=== PATIENT | female | born 1945 | race Caucasian/White ===

== ENCOUNTER 2024-12-23 13:06 | Emergency (ER) | payer OTHER, MEDICAID ==
[~2024-12-23] VITALS: Ht 154.9 cm; Wt 49.0 kg
[~2024-12-23 13:06] MED LIST: ATOR40TA70 MT; FLUT9.9S BOTHNSTRLS; GLIP5TAB22 PO; IBUP-2030 PO; LISI10TA26 PO; LOPE-159 PO; MECL-127 PO; OXCA300T51 PO; TIMO5DRO40 EACHEYE
[2024-12-23 13:07] VITALS: O2SAT 100
[2024-12-23 13:46] LABS: BASOPHILS % 0.8 % (0.0-2.0); EOSINOPHILS % 0.8 % (0.0-5.0); HEMATOCRIT. 33.7 % (36.0-48.0); HEMOGLOBIN. 11.2 g/dL (12.0-16.0); LYMPHOCYTES % 13.2 % (20.0-50.0); MEAN PLATELET VOLUME 9.5 fl (7.4-10.4); MONOCYTES % 9.3 % (2.0-8.0); NEUTROPHILS % 75.9 % (40.0-76.0); PLATELET 476 x1000/uL (130-400); RED BLOOD CELL COUNT 3.51 mill/uL (4.2-5.4); RED CELL DISTRIBUTION WIDTH 14.3 % (11.6-14.6)
[2024-12-23] MEDS: SODIUM CHLORIDE 0.9% 500 ML IV ONE (13:55)
[2024-12-23 14:01] LABS: CREATININE 0.6 mg/dL (0.6-1.0)
[2024-12-23 14:02] LABS: INR 1.0; TROPONIN I HIGH SENSITIVITY 4 ng/L (3.0-34); UREA NITROGEN BLOOD 16 mg/dL (9-23)
[2024-12-23 14:03] LABS: ASPARTATE AMINOTRANSFERASE 42 IU/L (<34)
[2024-12-23 14:04] LABS: BILIRUBIN DIRECT 0.2 mg/dL (<=3.0); BILIRUBIN TOTAL 0.5 mg/dL (0.1-1.0); PROTEIN TOTAL 6.9 g/dL (6.0-8.3)
[2024-12-23] MEDS ORDERED: KETOROLAC 15MG/ML VIAL IV ONE (15:30)
[2024-12-23 15:46] LABS: CLARITY URINE CLEAR (CLEAR); COLOR URINE YELLOW (YELLOW); GLUCOSE URINE NEGATIVE (NEGATIVE); KETONES URINE NEGATIVE (NEGATIVE); LEUKOCYTE ESTERASE URINE NEGATIVE (NEGATIVE); NITRITE URINE NEGATIVE (NEGATIVE); OCCULT BLOOD URINE NEGATIVE (NEGATIVE); PH URINE 7.5 (4.5-8.0); PROTEIN URINE NEGATIVE (NEGATIVE); SPECIFIC GRAVITY URINE 1.008 (1.005-1.030); UROBILINOGEN URINE 0.2 E.U./dL (0.2-1.0)
[2024-12-23] MEDS: KETOROLAC 15MG/ML VIAL IV NR (18:12)
[2024-12-23 21:17] VITALS: BP 165/66; PULSE 80; RESP 20; TEMP 36.9; O2SAT 98
== END 2024-12-23 21:40 | disposition short-term general hospital (02) ==
LOC: ER 13:06 → CMPBEDREQ 12-24 16:20
DX: R55 Syncope and collapse (principal); I95.9 Hypotension, unspecified; I10 Essential (primary) hypertension; R06.02 Shortness of breath; J45.909 Unspecified asthma, uncomplicated; Z79.899 Other long term (current) drug therapy; Z86.73 Personal history of transient ischemic attack (TIA), and cerebral infarction without residual deficits
CPT/HCPCS: 99291; 74176; 96374; 80076; 80048; 81003; 83880; 83605; 83690; 83735; 85025; 85610; 85730; 87040; 87086; 87186; 84484; 87077; 36415; 84145; 71045; 93005; J1885; J7040; A4606

== ENCOUNTER 2025-03-23 18:39 | Emergency (ER) | payer OTHER, MEDICAID ==
[~2025-03-23] VITALS: Ht 160 cm; Wt 60.0 kg
[2025-03-23 18:42] VITALS: O2SAT 100
[2025-03-23 19:43] LABS: HEMATOCRIT. 32.1 % (36.0-48.0); HEMOGLOBIN. 10.7 g/dL (12.0-16.0); MEAN PLATELET VOLUME 9.9 fl (7.4-10.4); PLATELET 450 x1000/uL (130-400); RED BLOOD CELL COUNT 3.34 mill/uL (4.2-5.4); RED CELL DISTRIBUTION WIDTH 14.2 % (11.6-14.6)
[2025-03-23 19:57] LABS: CREATININE 0.5 mg/dL (0.6-1.0)
[2025-03-23 19:58] LABS: TROPONIN I HIGH SENSITIVITY 5 ng/L (3.0-34); UREA NITROGEN BLOOD 15 mg/dL (9-23)
[2025-03-23 19:59] LABS: ASPARTATE AMINOTRANSFERASE 50 IU/L (<34)
[2025-03-23 20:00] LABS: BILIRUBIN DIRECT < 0.1 mg/dL (<=3.0); BILIRUBIN TOTAL 0.2 mg/dL (0.1-1.0); PROTEIN TOTAL 6.9 g/dL (6.0-8.3)
[2025-03-23] MEDS: SODIUM CHLORIDE 0.9% 1,000 ML IV ONE (20:12)
[2025-03-23 20:18] LABS: INR 1.0
[2025-03-23 20:29] LABS: LYMPHOCYTES % MANUAL 10.0 % (20.0-60.0); MONOCYTES % MANUAL 9.0 % (2.0-8.0); NEUTROPHILS % MANUAL 81.0 % (45.0-75.0); PLATELET ESTIMATE MARKEDLY DECREASED
[2025-03-23 21:46] LABS: TROPONIN I HIGH SENSITIVITY 5 ng/L (3.0-34)
[2025-03-23 22:23] LABS: CLARITY URINE CLEAR (CLEAR); COLOR URINE YELLOW (YELLOW); GLUCOSE URINE NEGATIVE (NEGATIVE); KETONES URINE NEGATIVE (NEGATIVE); LEUKOCYTE ESTERASE URINE NEGATIVE (NEGATIVE); NITRITE URINE NEGATIVE (NEGATIVE); OCCULT BLOOD URINE NEGATIVE (NEGATIVE); PH URINE 6.5 (4.5-8.0); PROTEIN URINE TRACE (NEGATIVE); SPECIFIC GRAVITY URINE 1.009 (1.005-1.030); UROBILINOGEN URINE 0.2 E.U./dL (0.2-1.0)
[2025-03-23 22:31] LABS: RBC URINE NONE SEEN /hpf (0-2); SQUAMOUS EPITHELIAL CELL URINE RARE /lpf (RARE/1+); WBC URINE 0-2 /hpf (0-2)
[2025-03-23 22:32] LABS: BACTERIA URINE NONE SEEN
[2025-03-24 01:30] VITALS: BP 142/49; PULSE 64; RESP 13; TEMP 36.9; O2SAT 99
== END 2025-03-24 01:48 | disposition short-term general hospital (02) ==
LOC: ER 18:39 → EDBEDREQTM 23:47 → EDBEDREQ 23:47 → ER 03-24 01:48 → CMPBEDREQ 03-24 07:39
DX: R55 Syncope and collapse (principal); I10 Essential (primary) hypertension; E11.9 Type 2 diabetes mellitus without complications; R06.02 Shortness of breath; E78.00 Pure hypercholesterolemia, unspecified; Z79.899 Other long term (current) drug therapy; Z86.73 Personal history of transient ischemic attack (TIA), and cerebral infarction without residual deficits
CPT/HCPCS: 99285; 96360; 71045; 80076; 80048; 81003; 83880; 83735; 85025; 85610; 86850; 86900; 86901; 84484; 36415; 93005; J7030